=== PATIENT | male | born 1970 | race Caucasian/White ===

== ENCOUNTER 2017-05-15 10:33 | Emergency (ER) | payer BC ==
[~2017-05-15] VITALS: Ht 175.3 cm; Wt 111.1 kg
[~2017-05-15 10:33] MED LIST: Levaquin PO; Prevacid PO; Proventil,Ventolin H IH; THERAGRAN1 TABLET PO; ZOFRAN4 MG PO; predniSONE PO
[2017-05-15 14:08] LABS: HEMATOCRIT 49.5 % (38.0-50.0); MCH 29.5 PG (29.0-34.0); MCHC 34.3 G/DL (30.0-36.0); MCV 85.8 FL (86-99); PLATELET COUNT 246 K/uL (156-360); RBC DIS.WIDTH-CV 12.4 % (11.8-14.6); RBC DIS.WIDTH-SD 38.5 % (39-53); RED BLOOD COUNT 5.77 M/uL (4.00-5.50); WHITE BLOOD COUNT 7.4 K/uL (4.1-10.2)
[2017-05-15 14:19] LABS: CHLORIDE 104 mEq/L (99-109); POTASSIUM 4.7 mEq/L (3.7-5.4); SODIUM 139 mEq/L (136-147)
[2017-05-15 14:21] LABS: GLUCOSE 106 mg/dL (70-99)
[2017-05-15 14:25] LABS: CREATININE 1.3 mg/dL (0.6-1.3); GFR ESTIMATE (CALCULATED) > 59 mL/min/ (58.99-99999)
[2017-05-15 14:26] LABS: UREA NITROGEN (BUN) 14 mg/dL (9-23)
[2017-05-15] MEDS ORDERED: ATARAX,VISTARIL50 MG PO (14:39)
[2017-05-15 14:53] VITALS: BP 136/82
== END 2017-05-15 14:54 | disposition home or self-care (01) ==
LOC: EME 10:33
PROVIDERS: Physician Assistant Medical
DX: F41.0 Panic disorder [episodic paroxysmal anxiety] (principal); R53.1 Weakness; R42 Dizziness and giddiness; R07.89 Other chest pain; R63.4 Abnormal weight loss; Z68.36 Body mass index [BMI] 36.0-36.9, adult
CPT/HCPCS: 80048; 85027; 99281; 99283